=== PATIENT | male | born 1955 | race Caucasian/White ===

== ENCOUNTER 2023-12-03 21:05 | Inpatient (IN) | payer OTHER, SELFPAY ==
[2023-12-03 19:01] VITALS: BP 132/74
[2023-12-03 19:06] VITALS: BMI 29.1
[2023-12-03 19:10] VITALS: BP 105/91
[2023-12-03 19:16] LABS: % Basophils 0.8 % (0-2); % Eosinophils 1.6 % (0-6); % Immature Granulocytes 0.3 % (0-0.5); % Lymphocytes 27.9 % (20.5-51.1); % Monocytes 11.1 % (1.7-9.3); % Neutrophils 58.3 % (42.2-75.2); Absolute Basophils 0.1 10^3/uL (0-0.2); Absolute Eosinophils 0.2 10^3/uL (0-0.7); Absolute Lymphocytes 2.7 10^3/uL (1.2-3.4); Absolute Monocytes 1.1 10^3/uL (0.1-0.6); Absolute Neutrophils 5.7 10^3/uL (1.4-6.5); Hematocrit 41.3 % (39.0-52.0); Hemoglobin 14.5 g/dL (13.0-18.0); Mean Corp Hgb Conc. 35.1 g/dL (33.0-37.0); Mean Corpuscular Hgb 29.9 pg (27.0-31.0); Mean Corpuscular Volume 85.2 fL (80.0-94.0); Mean Platelet Volume 9.9 fL (7.4-10.4); Nucleated Red Blood Cells % 0 % (-); Platelet Count 245 10^3/uL (130-400); Red Blood Cell Count 4.85 10^6/uL (4.70-6.10); Red Cell Dist. Width 12.6 % (11.5-14.5); White Blood Cell Count 9.8 10^3/uL (4.8-10.8)
--- NOTE | 2023-12-03 19:20 | ED.GENMED ---
History of Present Illness
General
Chief Complaint: Dizziness
Source: patient
Time Seen by Provider: 12/03/23 19:01
History of Present Illness
History of Present Illness:
68-year-old male emergency room complaining of near syncope, dizziness. Patient states that he was performing his daily walk which involves going 1/[address] and back to the house. The walk back to the house is uphill. Patient
began feeling lightheaded and short of breath. Patient had to stop the walk. He started up again and again the symptoms returned. Patient then again began walking and he developed similar symptoms making him have to stop walking and go down to
his knee. 911 was called. Currently the patient has no chest pain, shortness of breath or any symptoms. He feels pretty good at this point. Patient relates that 2 days ago while performing some extensive work around the house including shoveling
heavy material was moving a heavy wheelbarrow he began having pain in his upper back which was significant. It made him feel nauseous. He may have felt some shortness of breath. Even after completing the work he felt very poorly throughout the
evening. Yesterday patient woke up feeling somewhat better. He did perform his walk yesterday, was able to finish but felt more tired during the walk event normal. Patient denies any previous cardiac history. He does have a history of
hypertension.
Past History
Past History
ED Past Medical History: HTN
Social History
Tobacco: Non-smoker
Alcohol: Occasional
Drug: None
Phy Exam
Physical Exam
Physical Exam:
General: Awake, Alert, Oriented X3. No acute distress.
Vitals: unremarkable
Head: Atraumatic
Eyes: Pupils equal, EOMI
Throat: Airway intact, no exudates
Neck: Trachea midline
Lungs: Clear and equal b/l
Heart: Regular rate, no murmurs
Abd: Soft, Nontender, No pulsatile mass
Neuro: Nonfocal
Skin: Warm, dry, no rash
Extremities: pulses equal b/l, no edema
Course
Orders/Labs/Results
Orders:
Orders
12/03/23 19:00
Electrocardiogram (*1) Urgent
Reason for Study: Chest Pain
Cardiac Monitoring- Treatment ONCE
EKG- Treatment ONCE
IV Insert/Care/Rem.- Treatment PRN
O2 Therapy [RESP] Urgent
Titrate/Wean O2 to maintain O2 sat greater than (%): 90
Special Instructions: Maintain sats >/=90%
Pulse Ox/spot Check [RESP] Urgent
Quantity: 1
Special Instructions: ON ROOM AIR
12/03/23 19:05
Complete Blood Count/With Diff Urgent
Comprehensive Metabolic Panel Urgent
Troponin I Urgent
12/03/23 19:27
Aspirin Chewable [Low Strength Aspirin] 324 mg PO NOW STA
12/03/23 19:42
Urinalysis Urgent
Date Specimen was Collected: 12/03/23
Time Specimen was Collected: 19:43
0.9% Sodium Chloride 500 ml [Nss] 500 ml IV BOLUS
12/03/23 19:43
CR Chest - 2 Views Urgent
Comment:
Reason For Exam: sob
12/03/23 20:07
Heparin 4,000 units IV NOW STA
Nursing to Place Non Medication Order As Directed
Physician Order: PTT 6 hours after initial start of Heparin infusion
Above order entered?: Yes
12/03/23 20:15
Heparin 11734 Units/250 ml 25,000 units in 250 ml IV PER PROTOCOL
Weight to be used for heparin protocol in kilograms (kg):: 99.9
Protocol:: Cardiac Tx/Acute Coronary
PTT Goal Range to be used:: PTT 73 to 111 seconds
Order type:: Initial
INITIAL Infusion Dose (UNITS/KG/hr) & then follow protocol:: 15 units/kg/hr
Infusion Dose in UNITS/hr & then follow protocol (UNITS/hr):: 1,500
INFUSION RATE in mL/hr & then follow protocol (mL/hr):: 15
PTT less than or equal to 64 seconds:: Increase rate by 200 units/hr (+ 2 mL/hr)
PTT 64.1 to 72.9 seconds:: Increase rate by 100 units/hr (+ 1 mL/hr)
PTT 73 to 111 seconds:: Target Range. No change in rate.
PTT 111.1 to 130.9 seconds:: Decrease rate by 100 units/hr (- 1 mL/hr)
PTT 131 to 199.9 seconds:: HOLD for 1 hr. Then decrease rate by 200 units/hr (- 2 mL/hr)
PTT greater than or equal to 200 seconds:: HOLD for 2 hrs & Notify Provider. Then decrease by 200 units/hr (-
2 mL/hr)
Lab follow-up:: Each change, PTT q6h until 2 consecutive are therapeutic. Then PTT
daily.
12/03/23 20:20
PTT Urgent
Comment: Obtain baseline before beginning heparin infusion if not already collected
12/03/23 20:51
Admit/Transfer Patient As Directed
Co-Sign Provider:
Level of Care: Inpatient admission
Assign to:: IVU
Physician / Group: aleksey
Diagnosis: NSTEMI
Reason for Hospitalization: NSTEMI
Expected length of stay greater than two midnights?: Yes
ELOS- Estimated Length of Stay in days: 2
I certify the patient meets the requirements for IP care: Yes
PRN Pain Medication Management As Directed
May give lesser potent ordered pain med per pt: Yes
preference::
Protocol:: Medication orders for pain may be administered in a
manner that supports deferring to patient preference
when the pt is:
- Requesting an ordered lesser potent pain medication.
Least to most potent pain medications are defined
as: acetaminophen < NSAID < tramadol < opioids
(morphine, oxycodone, hydromorphone).
- Requesting a lesser dose of the same medication IF
ORDERED.
- Requesting a less intrusive route of administration
if both routes are prescribed by the provider (PO <
IV).
12/03/23 20:52
Code Status As Directed
Resuscitation Status: Full Code
12/05/23 03:30
PTT Urgent
Abnormal Lab Results
12/03/23
19:05
Absolute Monos (auto) 1.1 H 10^3/uL
(0.1-0.6)
Monocytes % 11.1 H %
(1.7-9.3)
BUN 39 H mg/dl
(9-20)
Glucose 101 H mg/dl
(70-99)
AST 153 H U/L
(17-59)
ALT 52 H U/L
(0-50)
Troponin I 11.300 H* ng/ml
12/03/23 19:05
12/03/23 19:05
Vital Signs
Initial and Last Documented VS:
Initial Vital Signs
Temp Pulse Resp BP Pulse Ox
98.7 F 119 17 132/74 99
12/03/23 19:01 12/03/23 19:01 12/03/23 19:01 12/03/23 19:01 12/03/23 19:01
Last Documented Vital Signs
Temp Pulse Resp BP Pulse Ox
98.7 F 59 20 115/68 96
12/03/23 19:01 12/03/23 21:30 12/03/23 21:30 12/03/23 20:00 12/03/23 21:30
MDM/Problems Addressed
Differential Diagnosis Includes:
Recent IA, anemia, heat exhaustion, acute coronary syndrome
MDM/Problems Addressed:
Patient presents after having fatigue, shortness of breath, dizziness while on a short walk. Patient has a significantly abnormal EKG with deep T wave inversions in the inferior leads as well as T wave inversion in the lateral leads. There are Q
waves in 2, 3, aVF. Given the EKG changes and description of how he fell 2 days ago while doing heavy work around his house I am concerned that he had a cardiac event at that time. Troponin did return elevated at 11. The overall picture suggest a
late presentation of an acute IA. Patient is hemodynamically stable here in the emergency room. He was treated with aspirin and heparin. I discussed his presentation with Dr. Bhavna Casarez who is on-call for cardiology. We will keep the patient
n.p.o. after midnight in anticipation of a cath tomorrow.
Chronic conditions affecting care: HTN
*Radiology
Radiology exam reviewed: preliminary read by ED provider (No acute findings on my review of the chest x-ray)
*Pulse Oximetry
Patient hypoxic: no
*EKG
Interpreted by ED Provider?: Yes
Heart Rate: 62
Rate: normal
Rhythm: sinus
[place]: normal axis
Interval: normal interval
Ischemia: other (Deep T wave inversions in the inferior lateral leads. There is no significant ST elevation. There are Q waves in leads II, III and aVF.)
*Hot Dog Vender Interpretation
Rate: normal
Interpretation: normal
Rhythm: sinus
*Critical Care Note
Total Time (30-74mins, 75-104mins- exclusive of procedures): 40 min
comment:
Critical care statement: A total of 40 minutes of critical care time was provided for this patient. This includes management of unstable vital signs, evaluation of the patient at bedside, reviewing the patient's pertinent medical records, discussion
with consultants, review of old EKGs and review of pertinent medical records. This time with separate from time utilized to perform the aforementioned documented procedures
ED Attending Note
-
Portions of this chart may have been created with voice recognition software.� Occasional wrong word or��sound alike� substitutions may have occurred due to the inherent limitations of voice recognition software.
Discharge Plan
Departure
Patient Disposition: Admit
Date of Disposition: 12/03/23
Time of Disposition: 20:27
Admit to: IVU
Presentation/result/management discussed w/ accepting MD/DO: Hospitalist
Condition: Serious
Discharge Problem:
Acute IA, inferior wall
Interventions
Interventions:
*Risk Screen - Suicide Last Done: 12/03/23 19:01
*General Assessment Last Done: 12/03/23 19:01
*Neglect/Abuse Screening Last Done: 12/03/23 19:01
ED- Fall Risk Assessment Last Done: 12/03/23 19:07
*Nursing Disposition Last Done: 12/03/23 21:54
ED- Neurological Assessment Last Done: 12/03/23 19:07
ED- Cardiac Assessment Last Done: 12/03/23 19:07
ED Swallowing Screen Last Done: 12/03/23 19:07
Discharge Date and Time
Discharge Date/Time: 12/03/23 21:55
[2023-12-03] MEDS: LOW STRENGTH ASPIRIN 324 MG PO (19:31)
[2023-12-03 19:40] LABS: ALT (SGPT) 52 U/L (0-50); AST (SGOT) 153 U/L (17-59); Albumin 4.2 g/dl (3.5-5.0); Alkaline Phosphatase 81 U/L (38-126); Blood Urea Nitrogen 39 mg/dl (9-20); Calcium 9.2 mg/dl (8.4-10.2); Carbon Dioxide 28 mmol/L (22-30); Chloride 102 mmol/L (98-107); Estimated Creatinine Clearance 101 ml/min; Glucose 101 mg/dl (70-99); Potassium 3.9 mmol/L (3.5-5.1); Sodium 140 mmol/L (135-145); Total Bilirubin 0.7 mg/dl (0.2-1.3); Total Protein 6.6 g/dl (6.3-8.2); eGFR > 60.00
[2023-12-03] MEDS: NSS 500 IV (19:44)
[2023-12-03 20:00] VITALS: BP 115/68
[2023-12-03] MEDS: HEPARIN 4000 UNITS IV (20:26)
[2023-12-03] MEDS: HEPARIN 25000 UNITS/250 ML IV (20:28)
[2023-12-03 20:37] LABS: APTT 26.9 Sec (23.4-35.0)
--- NOTE | 2023-12-03 20:56 | HPS.HSE ---
Family Physician
-
Family Physician: Kristie Verde MD
Chief Complaint
-
dizziness
History of Present Illness
68-year-old male past medical history of hypertension presenting for dizziness and near syncope. He was on his daily walk and began feeling lightheaded and short of breath with blurry vision while walking up the hill. He had to stop to walk. He
started again and the symptoms returned so he had to go down to his knees. He called 911.
Currently he denies any chest pain or shortness of breath or any symptoms. He feels pretty good right now.
2 days ago while performing extensive work around the house including shoveling heavy material and moving a wheelbarrow he was having pain in his upper back which was significant. Denies any radiation to the arms or jaw or neck. He has some
soreness in the back. He had nausea and shortness of breath.
His mother had high blood pressure. His grandfather had stroke.
He occasionally smokes cigars. He denies alcohol.
Medical History
Past Medical History
Past Medical History: Reports Other ( hypertension)
Past Surgical History: Reports None
Social History
Tobacco: Non-smoker
Alcohol: None
Drug: None
Family History
Family History: Not pertinent
Allergies / Home Medications
Allergies reflects when Allergies were last updated in [facility].
Home Medications with original date entered in [facility]
Allergy/Medication List:
Allergies
Allergy/AdvReac Type Severity Reaction Status Date / Time
No Known Allergies Allergy Unverified 12/03/23 19:29
Home Medications
amlodipine 10 mg tablet 10 mg PO QPM 12/03/23
atorvastatin 10 mg tablet 10 mg PO QPM 12/03/23
azelastine 205.5 mcg (0.15 %) nasal spray (Astepro Allergy) 1 spray intranasal DAILY 12/03/23
cetirizine 10 mg tablet 10 mg PO DAILYPRN PRN allergies 12/03/23
cholecalciferol (vitamin D3) 50 mcg (2,000 unit) tablet 50 mcg PO DAILY 12/03/23
metoprolol succinate 25 mg tablet,extended release 24 hr 25 mg PO QPM 12/03/23
metoprolol succinate 50 mg tablet,extended release 24 hr 50 mg PO DAILY 12/03/23
oqlwrcvh-guj-irkcr 150 mcg-vit K1 30 mcg-lycop 300 mcg-lutein tablet (Centrum Minis Men 50 Plus) 1 tab PO DAILY 12/03/23
Review of Systems
-
History Source: Patient
A 12 point ROS was completed and negative except as noted: Yes
Constitutional: Reports No Symptoms
EENT: Reports No Symptoms
Respiratory: Reports See HPI
Cardiac: Reports See HPI
Abdomen/GI: Reports No Symptoms
: Reports No Symptoms
Musculoskeletal: Reports No Symptoms
Skin: Reports No Symptoms
Neurological: Reports No Symptoms
Endocrine: Reports No Symptoms
Hematologic/Lymphatic: Reports No Symptoms
Psych: Reports No Symptoms
Physical Exam
Vital Signs
Vital Signs
Temp Pulse Resp BP Pulse Ox
98.7 F 65 7 132/74 99
12/03/23 19:01 12/03/23 19:07 12/03/23 19:07 12/03/23 19:01 12/03/23 19:01
Physical Exam
General: Well Developed, Well Nourished and No Apparent Distress
HEENT: NormoCephalic, Moist mucous membranes and Atraumatic
Respiratory: Clear
Cardiac: S1/S2 and Regular Rhythm; No Murmur or Rub
GI: Soft, Non Tender, Non Distended and Normal Bowel Sounds; No Organomegaly
Rectal: Deferred by Provider
Musculoskeletal: No Clubbing, No Cyanosis and No Edema
Skin: No Rash
Neuro: Nonfocal/grossly intact
Laboratory Results
-
12/03/23 19:05
09/11/24 19:05
Laboratory Results
APTT 26.9 Sec (23.4-35.0) 12/03/23 20:20
Total Bilirubin 0.7 mg/dl (0.2-1.3) 12/03/23 19:05
AST 153 U/L (17-59) H 12/03/23 19:05
ALT 52 U/L (0-50) H 12/03/23 19:05
Alkaline Phosphatase 81 U/L (38-126) 12/03/23 19:05
Troponin I 11.300 ng/ml H* 12/03/23 19:05
Data Reviewed
-
Lab Data: Labs Reviewed by me
Old Records: Reviewed
Impression/Plan
-
IMPRESSION:
PLAN:
# NSTEMI
-EKG shows normal sinus rhythm, left axis deviation, incomplete right bundle branch block, T wave inversions inferior, lateral leads
-Troponin 11, trend to peak
-Aspirin
-Heparin drip
-N.p.o. past midnight for likely catheterization
-Continue statin
-Check chest x-ray
-Check echo
-Cardiology consulted
Essential hypertension
-Continue amlodipine
-Continue metoprolol
Full code
DVT prophylaxis�heparin drip
Regular diet
[2023-12-03 22:08] VITALS: BP 132/79
[2023-12-03 23:08] VITALS: BMI 28.5
[2023-12-03 23:46] LABS: Urine Albumin Trace (Neg - Trace); Urine Bilirubin Negative (Negative); Urine Character Clear (Clear); Urine Color Yellow; Urine Glucose Negative (Negative); Urine Ketone 3+ (Negative); Urine Leukocyte Negative (Negative); Urine Nitrite Negative (Negative); Urine Occult Blood Negative (Negative); Urine Urobilinogen Negative (Neg - 1+)
[2023-12-04] VITALS (11 sets, daily range): BP systolic 106–132; BP diastolic 66–81
--- NOTE | 2023-12-04 00:21 | PTCARENOTE ---
Pt rec'd from ED at [facility]. No complaints. adm hx taken and recorded. Pt given box lunch at HS and is now npo after mn for cath.
Heparin gtt infusing at 15 cc/hr Sinus on telemetry
[2023-12-04 04:13] LABS: % Basophils 0.8 % (0-2); % Eosinophils 1.3 % (0-6); % Immature Granulocytes 0.3 % (0-0.5); % Lymphocytes 28.6 % (20.5-51.1); % Monocytes 10.9 % (1.7-9.3); % Neutrophils 58.1 % (42.2-75.2); Absolute Basophils 0.1 10^3/uL (0-0.2); Absolute Eosinophils 0.1 10^3/uL (0-0.7); Absolute Lymphocytes 2.7 10^3/uL (1.2-3.4); Absolute Neutrophils 5.4 10^3/uL (1.4-6.5); Hematocrit 39.5 % (39.0-52.0); Hemoglobin 14.1 g/dL (13.0-18.0); Mean Corp Hgb Conc. 35.7 g/dL (33.0-37.0); Mean Corpuscular Hgb 31.1 pg (27.0-31.0); Mean Platelet Volume 10.8 fL (7.4-10.4); Nucleated Red Blood Cells % 0 % (-); Platelet Count 233 10^3/uL (130-400); Red Blood Cell Count 4.54 10^6/uL (4.70-6.10); Red Cell Dist. Width 12.6 % (11.5-14.5); White Blood Cell Count 9.3 10^3/uL (4.8-10.8)
[2023-12-04 04:26] LABS: APTT 92.2 Sec (23.4-35.0)
[2023-12-04 04:43] LABS: ALT (SGPT) 47 U/L (0-50); AST (SGOT) 108 U/L (17-59); Albumin 3.9 g/dl (3.5-5.0); Alkaline Phosphatase 83 U/L (38-126); Blood Urea Nitrogen 28 mg/dl (9-20); Calcium 9.1 mg/dl (8.4-10.2); Carbon Dioxide 24 mmol/L (22-30); Chloride 106 mmol/L (98-107); Estimated Creatinine Clearance > 125 ml/min; Glucose 91 mg/dl (70-99); HDL Cholesterol 42 mg/dl; LDL Cholesterol, Calculated 64 mg/dl; Potassium 3.8 mmol/L (3.5-5.1); Sodium 140 mmol/L (135-145); Total Bilirubin 1.1 mg/dl (0.2-1.3); Total Cholesterol 128 mg/dl (50-199); Total Protein 6.2 g/dl (6.3-8.2); Triglyceride 110 mg/dl (10-149); Very Low Density Lipoprotein 22 mg/dl (0-30); eGFR > 60.00
--- NOTE | 2023-12-04 06:58 | PTCARENOTE ---
Pt converted to afib, ecg confirmed. Pt with no prior history. Pt's only complaint is that of feeling warm. denies palpitations or cp.
--- NOTE | 2023-12-04 08:15 | CON.CAR ---
Addendum entered and electronically signed by Amberly Mathur MD 12/04/23 10:01:
I saw and examined the patient.
The PEST LOCATOR's note was reviewed and I agree with the note.
Comment: 68-year-old gentleman with past medical history of hypertension and hyperlipidemia who experienced an episode of back and chest pain after shoveling rocks on Friday or Friday. This resolved after about an hour or so he thought he was out
of the ramirez. Yesterday when walking to the mailbox up a hill for quarter a mile he had sudden onset of severe fatigue lightheadedness and feeling like he may pass out. On presentation EKG was concerning for inferior infarct pattern with Q waves
in 2 and aVF with deep symmetrical ST inversions inferolaterally. Troponin was 11.3 on arrival. He was admitted for NSTEMI, overnight he developed atrial fibrillation with rate control. He has no symptoms currently of palpitations. He has no
recurrent neck, back or chest pain does have a bit of dyspepsia currently. He is a non-smoker, drinks wine throughout the week. 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 On exam he has an irregularly irregular rate and rhythm
with a normal S1-S2 no murmurs or gallops were appreciated lungs were clear to auscultation bilaterally his good ulnar and radial pulses bilaterally. Most pressing problem is his NSTEMI, will arrange for cardiac catheterization today. Continue
aspirin and heparin, high-dose statin. BB to continue additional OMT as needed. I did review the case with interventional cardiology Dr. Gates. Trope is already peaked and we may have missed the true peak. Postcatheterization would continue
heparin drip and transition to Eliquis given the new atrial fibrillation. CHADS2 Vascor is a 2 and likely a 3 given his NSTEMI. If remains in atrial fibrillation tomorrow can arrange for cardioversion will keep n.p.o. after midnight. I counseled
him as to the appropriate use of Eliquis and needing to avoid NSAIDs and alcohol. Remaining chronic problems of hypertension and hyperlipidemia will be managed with doses of drugs adjusted as needed.
Original Note:
Consultation
Consultation Request
Date/Time Consultation Requested: 12/03/23 2240
Date/Time Consultation Performed: 12/04/23 0800
Requesting Provider: Dr. Thompson
Performing Provider: Kathya RAMOS for Dr. Mathur
Reason for Consultation: myocardial infarction
Medical History
-
Chief Complaint: fatigue, dizziness, back pain, chest discomfort
History of Present Illness:
68 y/o male with HTN and dyslipidemia who is here for evaluation after he walked 1/4 mile to his mailbox yesterday and felt severe fatigue and light-headedness with blurry vision, like he might pass out (which he did not). He got to his knees and
911 was alerted. He does report that on Friday or Friday (he can't remember which), he was shoveling rocks and felt tension in his upper back for hours. He also had a mild chest discomfort afterward for about 1 hour. He has also had some nausea and
mild SOB. He is chest pain free at the time of my assessment and is in no distress.
Past Medical History
Past Medical History: HTN and Hypercholesterolemia
Social History
Tobacco: Other (used to have an occasional cigar. )
Alcohol: Other (sometimes has 1-2 glasses of wine while cooking)
Family History
Family History: Reviewed & Not Pertinent
Allergies / Home Medications
Allergy/AdvReac Type Severity Reaction Status Date / Time
amlodipine Allergy Mild Swelling Verified 12/04/23 00:38
�Medication �Instructions �Recorded �Confirmed �Type
amlodipine 10 mg tablet 10 mg PO QPM Blood Pressure 12/03/23 12/03/23 History
atorvastatin 10 mg tablet 10 mg PO QPM High Cholesterol 12/03/23 12/03/23 History
azelastine 205.5 mcg (0.15 %) 1 spray intranasal DAILY Allergies 12/03/23 12/03/23 History
nasal spray (Astepro Allergy)
cetirizine 10 mg tablet 10 mg PO DAILYPRN PRN allergies 12/03/23 12/03/23 History
cholecalciferol (vitamin D3) 50 50 mcg PO DAILY Supplement 12/03/23 12/03/23 History
mcg (2,000 unit) tablet
metoprolol succinate 25 mg 25 mg PO QPM Heart 12/03/23 12/03/23 History
tablet,extended release 24 hr Disease/Condition
metoprolol succinate 50 mg 50 mg PO DAILY Heart 12/03/23 12/03/23 History
tablet,extended release 24 hr Disease/Condition
glfiqwxw-ask-cdozr 150 mcg-vit K1 1 tab PO DAILY Supplement 12/03/23 12/03/23 History
30 mcg-lycop 300 mcg-lutein tablet
(Centrum Minis Men 50 Plus)
Review of Systems
-
History Source: Patient
All other systems: Negative unless noted
Constitutional: Fatigue and Other (light-headedness)
Respiratory: Trouble Breathing
Cardiac: Chest Pain
Abdomen/GI: Nausea
Musculoskeletal: Other (back pain)
Physical Exam
Vital Signs
Temp Pulse Resp BP Pulse Ox
99.1 F 84 18 116/71 97
12/04/23 08:10 12/04/23 07:00 12/04/23 08:10 12/04/23 06:52 12/03/23 21:45
Lab Results
12/04/23 03:30
12/04/23 03:30
Troponin I 9.480 ng/ml H* 12/04/23 03:30
Physical Exam
General: Well Developed, Well Nourished and No Apparent Distress
HEENT: Normocephalic and Anicteric
Respiratory: Clear and Non Labored Respirations
Cardiac: Regular Rhythm
Musculoskeletal: No Edema
Skin: Warm and Dry
Neuro: AO x 3
Psych: Calm
Impression / Plan
-
NSTEMI:
-this diagnosis is threat to life
-trop 11.3, down to 9.5
-likely missed event based on EKG, trops, and history
-CP free at the time of my assessment
-ASA full dose given, continue ASA 81 mg daily
-continue heparin drip, which requires intensive monitoring
-echo today
-cardiac cath today
-hgbA1C is pending
Afib, paroxysmal:
-noted since this AM around 6 AM, minimally symptomatic with palps
-rate-controlled- continue metoprolol
-[id number] score is at least 3 for HTN, age, and AR- currently on heparin drip, but will need OAC
HTN:
-stable
-on amlodipine and metoprolol as OP
Dyslipidemia:
-LDL is 64
-on atorvastatin 10 mg daily as OP
-now with NSTEMI will increase to high intensity
Data Reviewed
-
EKG: Tracing Personally Visualized and interpreted (NSR 62 BPM, lateral and inferior t wave inversions, q waves present)
Radiology: Report Reviewed by me (No acute cardiopulmonary process.)
Labs: Labs Reviewed by me
[2023-12-04 09:19] LABS: Glycohemoglobin (HgbA1c) 5.4 % (4.0-5.6)
[2023-12-04] MEDS: THERAGRAN 1 TABLET PO (09:51)
[2023-12-04] MEDS: VITAMIN D3 (cholecalciferol) 50 MCG PO (09:51)
[2023-12-04] MEDS: LOW STRENGTH ASPIRIN 81 MG PO (09:51)
[2023-12-04] MEDS: TOPROL XL 50 MG PO (09:52)
--- NOTE | 2023-12-04 10:10 | CM ---
Pricing on Eliquis 5mg BID is $47 for a 30 day supply. I will place a free 30 day coupon in the patient's red discharge folder.
--- NOTE | 2023-12-04 10:34 | CM ---
Chart reviewed. Patient is independent of ADLS, lives with his in a multilevel house, 2 [address]AI[address] through the front and 4 [address]AI[address] through the side, 0 DME. Plan is to return home. CM to follow
[2023-12-04 11:59] LABS: ACT-LR - POC 210 Seconds (116-155)
[2023-12-04] MEDS: PROTONIX 40 MG PO (12:53)
--- NOTE | 2023-12-04 13:16 | ITS.CL.CATH ---
[employer] - Catheterization
Cardiac Catheterization
Procedure Report:
CARDIAC CATHETERIZATION REPORT
Date of Procedure: 12/04/23
Referring: Dr. Amberly Mathur
INDICATION: NSTEMI
PROCEDURE:
1. Left heart catheterization
2. Coronary angiography
3. iFR of LAD
ACCESS:
6 [place] right radial artery
CATHETERS:
1. 6 [place] JR4
2. 6 [place] JL3.5
HEMODYNAMIC DATA (mmHg)
AO 120/79 (mean 90)
LV 111/13 (EDP 18)
CORONARY ANGIOGRAPHY
Dominance: right
LM: normal
LAD: large vessel giving rise to a moderate caliber D1 and large D2. There is a 70% stenosis just after the takeoff of D2, and a second area of 50% disease distally. This was further interrogated with iFR.
LCx: large vessel giving rise to a single large marginal branch
RCA: dominant vessel that gives rise to a large RPDA and several RPL branches. The vessel is totally occluded proximally with thrombus and the mid-distal vessel fills via robust L-R collaterals. The occluded segment extends from the proximal to mid
RCA with a moderate degree of calcification within the occluded segment. There is a severe ~90% stenosis at the distal RCA just before the PDA takeoff.
iFR of LAD
The decision was made to perform physiologic testing. The diagnostic catheter was removed over a wire and exchanged for a XB3.5 guiding catheter. The guiding catheter was advanced into the ascending aorta and seated in the LMCA. Additional heparin
was given to obtain an ACT greater than 250 seconds. An iFR wire was zeroed outside of the body, then inserted into the guiding sheath. The wire was advanced and the transducer was normalized just outside of the guiding catheter tip. The wire was
advanced into the distal. Three iFR measurements were taken and was positive (0.84, 0.83, 0.85). iFR pullback was then performed; delta iFR was most significant for the more proximal lesion with some contribution also from the distal lesion. The iFR
correctly normalized to 1.0 in the LM.
Closure Device: TR band
Radiation (mGy): 459.96
DAP (cm2.Gy): 29.9490
Fluoroscopy time (minutes): 7.4
CONCLUSIONS
1. Two vessel obstructive coronary artery disease in a right dominant system with culprit 100% occluded RCA with robust L-R collaterals and non-culprit iFR positive mid-LAD.
2. Mildly elevated LV filling pressure and no aortic stenosis.
RECOMMENDATIONS:
1. Expectant management after cardiac catheterization via right radial approach.
2. Consult CT surgery for CABG evaluation.
3. Continue ASA, statin, metoprolol; on RASS agents or P2Y12 pending surgical evaluation.
Copy to: Dr. Kristie Verde MD (PCP)
Signed: Tushar Burrell MD, PhD
--- NOTE | 2023-12-04 13:36 | CONSULT.CT ---
Consultation
-
Date/Time Consultation Requested: 12/03
Date/Time Consultation Performed: 12/03
Requesting Provider: Cricket Burrell
Performing Provider: Irene RAMOS for Dr. Kev Sr
Reason for Consultation: CABG evaluation
Patient History
Physicians
Family Physician: Kristie Verde
Outpatient Perinatal Tech: Cricket Burrell
Inpatient Perinatal Tech: Cricket Burrell
History of Present Illness
68-year-old right hand dominant male Presented to [facility] ED on 12/03/2023 for evaluation of acute onset fatigue and lightheadedness/near syncope after walking to his mailbox uphill. Denies chest pressure. Patient had an episode
of back and chest pain after shoveling rocks on Friday or Friday, which resolved after an hour. Patient describes this episode is different from his history of prior back pain experience with musculoskeletal injury. Troponin was 11.3 on arrival
and patient was admitted for NSTEMI. Overnight, he developed rate controlled new onset atrial fibrillation. A transthoracic echocardiogram performed today reported an EF of 55 to 60% and mild mitral regurgitation. Left heart cath was conducted
today and reported two-vessel coronary disease. Patient currently pain-free resting in bed.
LHC (R radial) 12/03:
LM: normal
LAD: 70% stenosis just after the takeoff of D2, and a second area of 50% disease distally. +iFR ((0.84, 0.83, 0.85)
LCx: normal
RCA: Totally occluded proximally with thrombus and the mid-distal vessel fills via robust L-R collaterals. The occluded segment extends from the proximal to mid RCA with a moderate degree of calcification within the occluded segment. There is a
severe ~90% stenosis at the distal RCA just before the PDA takeoff.
Past Medical History
Past Medical History: HTN and Hypercholesterolemia
Past Surgical History
Past Surgical History: None
Family History
Mother: N/A
Father: N/A
Social History
Alcohol: Occasional
Drug: None
Tobacco: Smoker (rare cigar)
Personal:
Living: With Spouse
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
Allergies
Allergies
Allergy/AdvReac Type Severity Reaction Status Date / Time
benazepril Allergy Severe angioedema Uncoded 12/04/23 15:03
Home Medications
�Medication �Instructions �Recorded �Confirmed �Type
amlodipine 10 mg tablet 10 mg PO QPM Blood Pressure 12/03/23 12/03/23 History
atorvastatin 10 mg tablet 10 mg PO QPM High Cholesterol 12/03/23 12/03/23 History
azelastine 205.5 mcg (0.15 %) 1 spray intranasal DAILY Allergies 12/03/23 12/03/23 History
nasal spray (Astepro Allergy)
cetirizine 10 mg tablet 10 mg PO DAILYPRN PRN allergies 12/03/23 12/03/23 History
cholecalciferol (vitamin D3) 50 50 mcg PO DAILY Supplement 12/03/23 12/03/23 History
mcg (2,000 unit) tablet
metoprolol succinate 25 mg 25 mg PO QPM Heart 12/03/23 12/03/23 History
tablet,extended release 24 hr Disease/Condition
metoprolol succinate 50 mg 50 mg PO DAILY Heart 12/03/23 12/03/23 History
tablet,extended release 24 hr Disease/Condition
[id number] 150 mcg-vit K1 1 tab PO DAILY Supplement 12/03/23 12/03/23 History
30 mcg-lycop 300 mcg-lutein tablet
(Centrum Minis Men 50 Plus)
Review of Systems
-
History Source: Patient
General: Reports No Symptoms
HEENT: Reports Other (mkild seasonal nasal congestion)
Respiratory: Reports No Symptoms
Cardiac: Reports No Symptoms
Abdomen/GI: Reports No Symptoms
: Reports No Symptoms
Musculoskeletal: Reports No Symptoms
Skin: Reports No Symptoms
Neurological: Reports No Symptoms
Vascular: Reports No Symptoms
Physical Exam
Vital Signs
Temp 98.5 F 12/04/23 12:45
Temp route: Oral 12/04/23 12:45
Pulse 86 12/04/23 12:37
Rhythm: Normal sinus rhythm 12/03/23 23:00
Resp Rate 20 12/04/23 12:45
Blood pressure 110/66 12/04/23 12:37
Blood pressure extremity used: Left upper arm 12/04/23 12:45
Position: Lying 12/04/23 12:45
MAP (cuff-Ravi Monitor) 81 12/04/23 12:37
SaO2 94 12/04/23 12:45
Oxygen Mode of Delivery Room air 12/04/23 12:45
Can the patient verbally communicate their pain? Yes 12/03/23 23:08
Actual Weight 97.8 kg 12/03/23 23:08
Body Mass Index (BMI) 28.5 12/03/23 23:08
Labs
12/04/23 03:30
12/04/23 03:30
APTT 92.2 Sec (23.4-35.0) H 12/04/23 03:30
Hemoglobin A1c Cancelled 12/03/23 22:40
Troponin I 7.040 ng/ml H* D 12/04/23 09:44
Urinalysis
Urine Color Yellow 12/03/23 23:32
Urine Clarity Clear (Clear) 12/03/23 23:32
Urine pH 5.0 (5.0-9.0) 12/03/23 23:32
Ur Specific [place] 1.020 (<1.030) 12/03/23 23:32
Urine Ketones 3+ (Negative) A 12/03/23 23:32
Urine Occult Blood Negative (Negative) 12/03/23 23:32
Urine Bilirubin Negative (Negative) 12/03/23 23:32
Ur Leukocyte Esterase Negative (Negative) 12/03/23 23:32
Urine Glucose Negative (Negative) 12/03/23 23:32
Urine Albumin Trace (Neg - Trace) 12/03/23 23:32
Exam
General: Well Developed, Well Nourished and No Apparent Distress
HEENT: Normocephalic, Anicteric, Moist Mucous Membranes and PERRLA
Neck: Trachea Midline
Respiratory: Clear
Cardiac: Irregular Rhythm
GI: Soft, Non Tender, Non Distended and Normal Bowel Sounds
Rectal: Deferred by Provider
Skin: Warm and Dry
Neuro: AO x 3, No Motor Deficits and Nonfocal/Grossly Intact
Extremities: Pulses (+2/4 DP pulses B/L)
Lymph: No Lymphadenopathy
Psych: Calm
Assessment / Plan
-
78-year-old male admitted with NSTEMI and found to have two-vessel coronary disease with preserved LV function
-Surgeon to review imaging and discuss risk-benefit of CABG procedure with family and patient
-Preop diagnostics ordered
Data Reviewed
-
EKG: Report Reviewed by me and Discussed with Physician
Bluing Oven Tender: Report Reviewed by me and Discussed with Physician
Echo: Report Reviewed by me and Discussed with Physician
Radiology: Report Reviewed by me and Discussed with Physician
Labs: Labs Reviewed by me and Discussed with Physician
--- NOTE | 2023-12-04 14:55 | W.PN.HOSP.TC ---
Today's Communication/Plan
-
WIll need CTSgy ocnsult for CABG Eval
Assessment / Plan
Assessment / Plan
NAD, resting comfortably in bed
Scleral anicteric
Moist mucous membranes
No JVD
CTA bilateral
Normal S1-S2 no murmurs IRR
Soft nontender nondistended bowel sounds active
No peripheral pitting edema
Moves extremities spontaneously
AAOx3
MVCAD with 100% lesion of the RCA (culprit lesion) and mLAD - 70%(non-culprit lesion)
-Rec CTSgy eval for CABG
-Continue Hep Gtt
-Continue BB
-Continue HIStatin
-Continue ASA
NSTEMI
� Trend troponin to peak
� Heparin drip
� Repeat EKG
� Consult cardiology
� Likely will require LHC
� N.p.o.
� Continue high intensity statin
� 2D echocardiogram, EF 55 to 60%. Without regional wall motion abnormality
� Continue beta-pedro luis
Atrial fibrillation, paroxysmal
� Continue beta-pedro luis
� On heparin drip, when ready for discharge will DC home with Eliquis 5 mg twice a day
Hypertension
� Continue CCB
� Continue beta-pedro luis
Anticipated Discharge: 24 - 48 hours
Subjective/Interval History
-
Date of Service: December 04, 2023
Seen and examined. No new complaints. Overnight went into atrial fibrillation with feeling like he had a cold and palpalpitations. This is a new diagnosis for him. He on heparin drip tolerating well. No further chest discomfort noted.
Objective Data
-
Labs:
Laboratory Results
12/04/23
03:30
WBC 9.3
Hgb 14.1
Hct 39.5
Plt Count 233
APTT 92.2 H
Sodium 140
Potassium 3.8
Chloride 106
Carbon Dioxide 24
BUN 28 H
Creatinine 0.6 L
Glucose 91
Calcium 9.1
Total Bilirubin 1.1
AST 108 H
ALT 47
Alkaline Phosphatase 83
Vital Signs:
Vital Signs
Temp Pulse Resp BP Pulse Ox
98.5 F 73 20 116/66 94
12/04/23 12:45 12/04/23 14:00 12/04/23 12:45 12/04/23 14:00 12/04/23 12:45
I&O
12/03/23 12/04/23 12/05/23
06:59 06:59 06:59
Intake Total 120 / 120
Output Total 350 / 350
Balance -230 / -230
[2023-12-04] MEDS: LIPITOR 40 MG PO (17:08)
[2023-12-04] MEDS: NORVASC 10 MG PO (17:08)
[2023-12-04] MEDS: TOPROL XL 25 MG PO (17:09)
[2023-12-04] MEDS: FLUSH (NSS) 1 FLUSH IV (17:09)
[2023-12-04] MEDS: HEPARIN 25000 UNITS/250 ML IV (17:12)
[2023-12-04 19:37] LABS: Hepatitis C Antibody Negative (Negative)
[2023-12-04 21:53] LABS: APTT 29.7 Sec (23.4-35.0)
--- NOTE | 2023-12-04 23:57 | PTCARENOTE ---
PTT result-29.7. reviewed result with Subha CV PA. continue heparin gtt at 15 ml/hr and recheck PTT in 4 hours per PA. order placed.
patient denies any cp/sob. independent in the room. SR 60s. bp stable. reviewed plan of care with patient and verbalized understanding. R radial site-CDI. +pulses/no edema. call alfred within reach. makes needs known.
[2023-12-05] VITALS (7 sets, daily range): BP systolic 105–138; BP diastolic 65–84
[2023-12-05 02:54] LABS: Hematocrit 38.3 % (39.0-52.0); Hemoglobin 13.9 g/dL (13.0-18.0); Mean Corp Hgb Conc. 36.3 g/dL (33.0-37.0); Mean Corpuscular Hgb 30.3 pg (27.0-31.0); Mean Corpuscular Volume 83.4 fL (80.0-94.0); Mean Platelet Volume 10.4 fL (7.4-10.4); Platelet Count 235 10^3/uL (130-400); Red Blood Cell Count 4.59 10^6/uL (4.70-6.10); Red Cell Dist. Width 12.6 % (11.5-14.5); White Blood Cell Count 9.2 10^3/uL (4.8-10.8)
[2023-12-05 03:03] LABS: ALT (SGPT) 41 U/L (0-50); AST (SGOT) 63 U/L (17-59); Albumin 3.6 g/dl (3.5-5.0); Alkaline Phosphatase 82 U/L (38-126); Blood Urea Nitrogen 22 mg/dl (9-20); Calcium 9.1 mg/dl (8.4-10.2); Carbon Dioxide 23 mmol/L (22-30); Chloride 107 mmol/L (98-107); Estimated Creatinine Clearance 116 ml/min; Glucose 88 mg/dl (70-99); Potassium 3.7 mmol/L (3.5-5.1); Sodium 142 mmol/L (135-145); Total Bilirubin 0.9 mg/dl (0.2-1.3); eGFR > 60.00
[2023-12-05 03:10] LABS: APTT 65.6 Sec (23.4-35.0)
--- NOTE | 2023-12-05 08:20 | PTCARENOTE ---
Assumed care of pt from prev nsg shift; Pt AAOx3 w/no CP or SOB. Pt w/IV Heparin drip infusing through patent IV line as ordered. Pt's VS stable w/HR in the 50's-60's & BP this AM 122/73. Pt is SB/SR on telemetry monitoring. Pt's R radial site
w/dressing C/D/I w/no signs or symptoms of bleeding or hematoma. Pt asking to speak to a patient advocate this AM. Pt feels 'everything is happening too quickly & he would like to get a 2nd opinion before deciding on surgery'. Pt also expressing his
'desire to go home for the weekend to have more time to decide'. This RN advised community health planning director & MDs notified. Plan of care ongoing.
[2023-12-05 08:42] LABS: Glucose - Point of Care 96 mg/dl (70-99)
--- NOTE | 2023-12-05 09:53 | W.PN.UPDATE ---
Update Note
Progress Note Update
CARDIAC SURGERY ATTENDING:
I met Mr. Eze Delgado and his briefly at bedside yesterday. This morning I had a extended conversation with Mr. Delgado over approximately 70 minutes. We reviewed his coronary pathology, discussed the various options to address his CAD including
surgical coronary revascularization versus stenting, reviewed the operative procedure in great detail, discussed the periprocedural operative risks (including, but not limited to, , stroke, AL, PPM requirement, arrhythmia, PNA, ANTOINETTE/F, bleeding,
and infection), reviewed the expected in-hospital postprocedural course, and discussed the expected outpatient recovery. All questions were answered to the best of my abilities.
I would advocate for CABG with THO to LAD and greater saphenous vein to his RPDA and potentially RPLB (will require intraoperative assessment). Given his A-fib on presentation, I would recommend concomitant encompass maze procedure and exclusion
of his left atrial appendage.
Near the end of our conversations, Dr. Tushar Gates, my interventional cardiology colleague, was also present in the room and added his expertise to our discussions. At present, the patient remains undecided as to which course he wishes to
choose, but related that he would prefer discharge and outpatient scheduling of his procedure following further personal consideration. He also mentioned obtaining a second opinion which I encouraged. The patient's was not yet present during
the discussions this morning, I will speak with her as well when she arrives later today. From a surgical perspective, I do not believe the patient necessarily needs to remain a inpatient if he remains angina free off anticoagulation. However, I
counseled the patient that leaving the hospital could impart additional risk and then it would be important that he call or return immediately with any symptomatology.
Thank you for the opportunity to participate in the care of this patient.
Kev Sr MD
[phone]
[2023-12-05] MEDS: THERAGRAN 1 TABLET PO (10:00)
[2023-12-05] MEDS: PROTONIX 40 MG PO (10:00)
[2023-12-05] MEDS: TOPROL XL 50 MG PO (10:00)
[2023-12-05] MEDS: VITAMIN D3 (cholecalciferol) 50 MCG PO (10:00)
[2023-12-05] MEDS: LOW STRENGTH ASPIRIN 81 MG PO (10:00)
--- NOTE | 2023-12-05 10:28 | W.PN.CD ---
Today's Communication / Plan
-
ongoing discussion with patient/family regarding surgical plans
Impression / Plan
-
Mr. Delgado is a 68 year old man with medical history of HTN and HLD, admitted with several days of chest pain, found to have new Afib and NSTEMI with urgent cardiac cath 12/04/23 demonstrating 100% occluded proximal RCA with L-R collaterals and
non-culprit 80% mid LAD. He has remained chest pain free. He was referred for CABG evaluation.
# CAD
# NSTEMI
- most likely the patient had long standing severe disease allowing robust L-R collaterals to form and minimizing the size of his AZ when the RCA fully occluded
- his infarct likely occurred several days prior to presentation, troponin downtrending at time of admission
- EF preserved on TTE
- remains chest pain free
- Given lack of symptoms or signs of ongoing ischemia with a totally occluded culprit lesion, PCI of RCA is not indicated. He also has non-culprit severe LAD disease that was iFR positive. Revascularization of the LAD is indicated. While this could
be accomplished percutaneously, the it would require a long segment of stenting and custodial side branch vessels. He is a young patient and would benefit from a more durable result from a RILEY-LAD. Surgery would also allow grafting of his RCA
(currently dependent on L-R collaterals) and atrial clipping to address his Afib. I discussed the patient with Dr. Sr who has seen the patient and concurs that surgical revascularization would be optimal. The patient is considering obtaining a
second opinion, which would require discharge. Dr. Sr and I share the opinion that there is risk involved in discharging the patient of recurrent AZ, and we shared our concerns with with the patient who understands. He will discuss with his
today and make a final decision.
-cont. ASA, no P2Y12 given potential surgery
-continue heparin drip for Afib (no longer indicated from an ACS standpoint given RCA is totally occluded and he is at least 48 hours from his AZ)
Afib, paroxysmal:
- noted since morning of admission, minimally symptomatic, now in sinus rhythm
- continue metoprolol
- [id number] score is at least 3 for HTN, age, and AZ; will need anticoagulation with plan pending surgical decision
HTN:
-stable
-on amlodipine and metoprolol as OP
Dyslipidemia:
-LDL is 64
-on atorvastatin 10 mg daily as OP
-now with NSTEMI will increase to high intensity
Physical Exam
Vital Signs/Labs
Vital Signs
Temp Pulse Resp BP Pulse Ox
37.1 C 65 20 119/71 95
12/05/23 08:00 12/05/23 08:45 12/05/23 08:00 12/05/23 08:03 12/05/23 08:00
12/04/23 12/05/23 12/06/23
06:59 06:59 06:59
Actual Weight 97.8 kg
12/05/23 02:40
12/05/23 02:40
APTT 65.6 Sec (23.4-35.0) H 12/05/23 02:40
Triglycerides 110 mg/dl (10-149) 12/04/23 03:30
LDL Cholesterol, Calc 64 mg/dl 12/04/23 03:30
VLDL Cholesterol, Calc 22 mg/dl (0-30) 12/04/23 03:30
HDL Cholesterol 42 mg/dl 12/04/23 03:30
LAB Results
12/03/23 12/03/23 12/04/23
19:05 22:40 03:30
Troponin I 11.300 H* Cancelled 9.480 H*
12/04/23 12/04/23 12/04/23
09:44 13:15 19:15
Troponin I 7.040 H* D Cancelled Cancelled
Physical Exam
Constitutional: No acute distress and Comfortable
Cardiovascular: Rhythm & rate is regular, Pedal edema is absent, JVD pressure is normal, Systolic murmur absent and Diastolic murmur absent
Respiratory: Respiratory effort normal, Lungs clear to auscul. and Wheeze Absent
Neuro/Psych: Alert, Oriented and AO x 3
Other: Cath Site ([facility])
Data Reviewed
-
Date of Service: December 05, 2023
Medical Decision Making: Reviewed Test Results, Test Interpretation and Review of Case with other Provider
EKG: Tracing Personally Visualized and interpreted
Echo: Report Reviewed by me
X-Ray/CT/US/MRI/NUC/PET: Report Reviewed by me
Medical Tests (PFT, Pathology etc): Report Reviewed by me
Labs: Labs Reviewed by me and Labs Ordered by me
[2023-12-05 11:23] LABS: APTT 82.9 Sec (23.4-35.0)
[2023-12-05] MEDS: HEPARIN 25000 UNITS/250 ML IV (11:49)
--- NOTE | 2023-12-05 13:47 | W.PN.UPDATE ---
Addendum entered and electronically signed by RACHEL Webb 12/05/23 17:22:
Edit:
Procedure Type:�Isolated CABG
PERIOPERATIVE OUTCOME ESTIMATE %
Operative Mortality 0.64%
Morbidity & Mortality 3.53%
Stroke 0.537%
Renal Failure 0.386%
Reoperation 1.55%
Prolonged Ventilation 1.61%
Deep Sternal Wound Infection 0.083%
Long Hospital Stay (>14 days) 1.99%
Short Hospital Stay (<6 days)* 63.7%
Clinical Summary
Planned Surgery: Isolated CABG, Elective, First cardiovascular surgery
Demographics: 68 year old, White, male, 97.8kg, 185cm, BMI: 28.6 kg/m�
Lab Values: Creatinine: 0.7 mg/dL, Hematocrit: 38.3%, WBC Count: 9.2 10�/�L, Platelet Count: 100839 cells/�L
Substance Abuse: Never smoker, Alcohol use: <=1 drink/week
Risk Factors / Comorbidities: Hypertension
Cardiac Status: Ejection Fraction = 60%
Coronary Artery Disease: 2 vessels diseased, Non-ST Elevation [place], [place]: 1 to 7 Days
Valve Disease: Trivial/Trace AR, Mild MR, Trivial/Trace TR
Arrhythmia: Remote A-fib
Original Note:
Update Note
Progress Note Update
STS RISK SCORE
Clinical Summary
Planned Surgery: Isolated CABG, Urgent, First cardiovascular surgery
Demographics: 60 year old, male, 133.8kg, 178cm, BMI: 42.2 kg/m�
Lab Values: Creatinine: 0.7 mg/dL, Hematocrit: 44.3%, WBC Count: 8.7 10�/�L, Platelet Count: 186559 cells/�L
PreOp Medications: Insulin diabetes control
Substance Abuse: Current smoker
Risk Factors / Comorbidities: Insulin-dependent Diabetes Mellitus, Hypertension
Cardiac Status: NYHA Class II, Ejection Fraction = 57%
Coronary Artery Disease: 3 vessels diseased, Proximal LAD Stenosis >=70%, Stable Angina
Valve Disease: Trivial/Trace MR, Trivial/Trace TR
Procedure Type:�Isolated CABG
PERIOPERATIVE OUTCOME ESTIMATE %
Operative Mortality 0.753%
Morbidity & Mortality 4.55%
Stroke 0.56%
Renal Failure 0.513%
Reoperation 1.75%
Prolonged Ventilation 2.44%
Deep Sternal Wound Infection 0.141%
Long Hospital Stay (>14 days) 2.85%
Short Hospital Stay (<6 days)* 58.7%
--- NOTE | 2023-12-05 15:34 | CM ---
Chart reviewed. Patient is independent of ADLS, lives with his in a m. level home 2 BAILEY through the front and 4 BAILEY through the side, 0 DME. Plan is CABG. Patient unsure if he wants to stay until surgery Friday or if he would prefer to go
home and come back on Friday for PAT. Plan is patient will go home with CT Transitional RN after his CABG. CM to follow
--- NOTE | 2023-12-05 16:20 | W.PN.HOSP.TC ---
Today's Communication/Plan
-
follow up cardiology recs
follow up CTSurgery recs
Still wants to get a second opinon of needs for CABG
Assessment / Plan
Assessment / Plan
NAD, resting comfortably in bed
Scleral anicteric
Moist mucous membranes
No JVD
CTA bilateral
Normal S1-S2 no murmurs IRR
Soft nontender nondistended bowel sounds active
No peripheral pitting edema
Moves extremities spontaneously
AAOx3
MVCAD with 100% lesion of the RCA (culprit lesion) and mLAD - 70%(non-culprit lesion)
-Rec CTSgy eval for CABG
-Continue Hep Gtt
-Continue BB
-Continue HIStatin
-Continue ASA
NSTEMI
� Trend troponin to peak
� Heparin drip continue till rec to DC
� Followed by cardiology
� MVCAD with CASTING [employer] of the RCA and nonculprit lesion of the mLAD
� Continue high intensity statin
� 2D echocardiogram, EF 55 to 60%. Without regional wall motion abnormality
� Continue beta-pedro luis
Atrial fibrillation, paroxysmal
� Continue beta-pedro luis
� On heparin drip, when ready for discharge will DC home with Eliquis 5 mg twice a day
Hypertension
� Continue CCB
� Continue beta-pedro luis
Anticipated Discharge: 24 - 48 hours
Subjective/Interval History
-
Date of Service: December 05, 2023
Seen and examined. No new complaints. No acute overnight events
S/p cardiac cath. Continues on heparin drip. No interventions performed due to multivessel disease with a [employer] lesion to RCA.
Currently wants to think about CABG. States had a long discussion with cardiothoracic surgery and interventional cardiology.
States his good family friend is a cardiac nurse at [employer] wants a second opinion.
Objective Data
-
Labs:
Laboratory Results
12/05/23 12/05/23
10:43 16:45
PT Pending
INR Pending
APTT 82.9 H Pending
Vital Signs:
Vital Signs
Temp Pulse Resp BP Pulse Ox
98.9 F 57 20 114/70 96
12/05/23 15:03 12/05/23 15:45 12/05/23 15:03 12/05/23 15:05 12/05/23 15:03
I&O
12/04/23 12/05/23 12/06/23
06:59 06:59 06:59
Intake Total 120 / 120 1210 / 1210 720 / 720
Output Total 350 / 350
Balance -230 / -230 1210 / 1210 720 / 720
--- NOTE | 2023-12-05 16:54 | W.PN.UPDATE ---
Update Note
Progress Note Update
I had a long conversation with the patient and his . They are still unsure of how they would like to proceed (surgical vs. percutaneous revascularization). They are considering seeking a second opinion as an outpatient. I explained that there is
a small risk of a repeat cardiac event occurring out of the hospital but that it is not unreasonable for him to leave at this time given that his culprit lesion is already closed and he has not had ischemic symptoms since admission. He understands
this risk. He also understands that there is an urgency for him to reach a decision regarding revascularization strategy and proceed in the next days to weeks to reduce his chance of recurrent DC. Should he leave, he will need to start Eliquis with
a plan to discontinue at least 3 days prior to any planned CT surgical procedure. He will need stay on Aspirin daily. Should he definitively decide against surgery, he will need to start Plavix with a 600 mg loading dose and 75 mg daily thereafter
and continue Eliquis until 3 days prior to any planned percutaneous intervention.
[2023-12-05 17:22] LABS: INR 1.09; PT 13.9 Sec (11.4-14.6)
--- NOTE | 2023-12-05 17:22 | W.PN.UPDATE ---
Update Note
Progress Note Update
Patient will likely be discharged home and come back for surgery with Dr. Sr on 12/11. He is set up for PATTs on Thursday 12/07. Per cardiology he will be discharged on and he was given instructions on when to discontinue this when he goes
home. His and him expressed understanding. All questions answered. Emotional support provided.
[2023-12-05 17:24] LABS: APTT 85.9 Sec (23.4-35.0)
[2023-12-05] MEDS: TOPROL XL 25 MG PO (18:34)
[2023-12-05] MEDS: LIPITOR 40 MG PO (18:34)
[2023-12-05] MEDS: NORVASC 10 MG PO (18:34)
[2023-12-06 02:54] VITALS: BP 110/81
[2023-12-06] MEDS: HEPARIN 25000 UNITS/250 ML IV (04:14)
--- NOTE | 2023-12-06 06:21 | PTCARENOTE ---
Pt received start of shift, HR SB/SR. Heparin infusing at 1600u/hr. Pt planning on d/c today, states they will not stay another day. Denies any CP, SOB, or lightheadedness/dizziness.
[2023-12-06 06:48] VITALS: BP 137/70
--- NOTE | 2023-12-06 08:03 | PTCARENOTE ---
At one point in the night, upon entering the pt's room, a smoky smell was noted. Pt denies any involvement. VSS. Pt educated on safety r/t smoking in hospital. Pt proceeded to get agitated and emotional support given.
[2023-12-06 08:32] VITALS: BP 122/72
[2023-12-06] MEDS: TOPROL XL 50 MG PO (08:54)
[2023-12-06] MEDS: THERAGRAN 1 TABLET PO (08:54)
[2023-12-06] MEDS: PROTONIX 40 MG PO (08:54)
[2023-12-06] MEDS: VITAMIN D3 (cholecalciferol) 50 MCG PO (08:54)
[2023-12-06] MEDS: LOW STRENGTH ASPIRIN 81 MG PO (08:54)
[2023-12-06 11:07] VITALS: BP 124/77
--- NOTE | 2023-12-06 12:07 | W.PN.CD ---
Today's Communication / Plan
-
ok to discharge on asa/Eliquis (needs rx)/NTG prn (need rx)/BB and intensified statin (needs new rx)
Impression / Plan
-
Mr. Delgado is a 68 year old man with medical history of HTN and HLD, admitted with several days of chest pain, found to have new Afib and NSTEMI with urgent cardiac cath 12/04/23 demonstrating 100% occluded proximal RCA with L-R collaterals and
non-culprit 80% mid LAD. He has remained chest pain free. He was referred for CABG evaluation.
# CAD
# NSTEMI
- most likely the patient had long standing severe disease allowing robust L-R collaterals to form and minimizing the size of his AK when the RCA fully occluded
- his infarct likely occurred several days prior to presentation, troponin downtrending at time of admission
- EF preserved on TTE
- remains chest pain free
- Per Dr Burrell: 'Given lack of symptoms or signs of ongoing ischemia with a totally occluded culprit lesion, PCI of RCA is not indicated. He also has non-culprit severe LAD disease that was iFR positive. Revascularization of the LAD is indicated.
While this could be accomplished percutaneously, the it would require a long segment of stenting and detention side branch vessels. He is a young patient and would benefit from a more durable result from a RILEY-LAD. Surgery would also allow grafting of
his RCA (currently dependent on L-R collaterals) and atrial clipping to address his Afib. I discussed the patient with Dr. Sr who has seen the patient and concurs that surgical revascularization would be optimal. The patient is considering
obtaining a second opinion, which would require discharge. Dr. Sr and I share the opinion that there is risk involved in discharging the patient of recurrent AK, and we shared our concerns with with the patient who understands.'
-he plans on seeking another opinion, explained I agreed with the approach of Dr Sr and Indra
-cont. ASA, no P2Y12 given potential surgery
-transition heparin to Eliquis
-explained reasons to call 911
Afib, paroxysmal:
- noted since morning of admission, minimally symptomatic, now in sinus rhythm
- continue metoprolol
- [id number] score is at least 3 for HTN, age, and AK; starting Eliquis
HTN:
-stable
-on amlodipine and metoprolol as OP
Dyslipidemia:
-LDL is 64
-on atorvastatin 10 mg daily as OP
-now with NSTEMI will increase to high intensity
Subjective:
he is feeling well, he has a twinge briefly every now and again.
Physical Exam
Vital Signs/Labs
Vital Signs
Temp Pulse Resp BP Pulse Ox
98.4 F 52 18 110/81 98
12/06/23 11:09 12/06/23 03:45 12/06/23 11:09 12/06/23 02:54 12/06/23 11:09
12/05/23 02:40
12/05/23 02:40
PT 13.9 Sec (11.4-14.6) 12/05/23 16:58
INR 1.09 12/05/23 16:58
APTT 88.0 Sec (23.4-35.0) H 12/06/23 05:52
Triglycerides 110 mg/dl (10-149) 12/04/23 03:30
LDL Cholesterol, Calc 64 mg/dl 12/04/23 03:30
VLDL Cholesterol, Calc 22 mg/dl (0-30) 12/04/23 03:30
HDL Cholesterol 42 mg/dl 12/04/23 03:30
LAB Results
12/03/23 12/03/23 12/04/23
19:05 22:40 03:30
Troponin I 11.300 H* Cancelled 9.480 H*
12/04/23 12/04/23 12/04/23
09:44 13:15 19:15
Troponin I 7.040 H* D Cancelled Cancelled
Physical Exam
Constitutional: No acute distress
Cardiovascular: Rhythm & rate is regular, Pedal edema is absent, JVD pressure is normal, Systolic murmur absent and Diastolic murmur absent
Respiratory: Respiratory effort normal, Lungs clear to auscul., Wheeze Absent, Crackles Absent and Rhonchi Absent
Neuro/Psych: AO x 3
Data Reviewed
-
Date of Service: December 06, 2023
Medical Decision Making: Review of Case with other Provider (Dr Guthrie, ok to discharge)
[2023-12-06] MEDS: ELIQUIS 5 MG PO (12:43)
--- NOTE | 2023-12-06 13:13 | W.PN.HOSP.TC ---
Today's Communication/Plan
-
DC home
stop hep gtt
start eliquis.
Assessment / Plan
Assessment / Plan
NAD, resting comfortably in bed
Scleral anicteric
Moist mucous membranes
No JVD
CTA bilateral
Normal S1-S2 no murmurs IRR
Soft nontender nondistended bowel sounds active
No peripheral pitting edema
Moves extremities spontaneously
AAOx3
MVCAD with 100% lesion of the RCA (culprit lesion) and mLAD - 70%(non-culprit lesion)
-Rec CTSgy eval for CABG
-Continue Hep Gtt
-Continue BB
-Continue HIStatin
-Continue ASA
NSTEMI
� Trend troponin to peak
� Heparin drip continue till rec to DC
� Followed by cardiology
� MVCAD with SMALL LOT OPERATOR of the RCA and nonculprit lesion of the mLAD
� Continue high intensity statin
� 2D echocardiogram, EF 55 to 60%. Without regional wall motion abnormality
� Continue beta-pedro luis
Atrial fibrillation, paroxysmal
� Continue beta-pedro luis
� On heparin drip, when ready for discharge will DC home with Eliquis 5 mg twice a day
Hypertension
� Continue CCB
� Continue beta-pedro luis
We had the patient center discussion again at bedside today. He understands the risk of having a heart attack or even dying if intervention with revascularization/PCI versus CABG is delayed for too long. He states that he needs to have a second
opinion in order to make the best decision. He understands that he will need to follow-up with cardiology. He understands that he is started on Eliquis and will need to follow recommendations from cardiology outpatient but when he should stop
Eliquis prior to cardiac intervention.
I again impressed on him how serious this condition is and it is treatable. I also informed him no strenous activity
Anticipated Discharge: Today
Subjective/Interval History
-
Date of Service: December 06, 2023
Seen and examined. No new complaints. No acute overnight events.
States that he is ready to go home. Has a appointment with marketing operations specialist at [facility] on Friday.
States he will go home and not do anything strenuous. Will sit on the couch outside and relax.
Objective Data
-
Labs:
Laboratory Results
12/06/23
05:52
APTT 88.0 H
Vital Signs:
Vital Signs
Temp Pulse Resp BP Pulse Ox
98.4 F 52 18 110/81 98
12/06/23 11:09 12/06/23 03:45 12/06/23 11:09 12/06/23 02:54 12/06/23 11:09
I&O
12/05/23 12/06/23 12/07/23
06:59 06:59 06:59
Intake Total 1210 / 1210 1200 / 1200
Balance 1210 / 1210 1200 / 1200
--- NOTE | 2023-12-06 13:18 | W.DCSUMMARY ---
Discharge Summary
Discharge Data
Date of Admission: 12/03/23
Date of Discharge: 12/06/23
-
Pending Results: No
Hospital Course
68m gx if HTN presented with dizziness and almost passing out associated lightheadedness shortness of breath blurry vision while walking. Found to have high heart enzymes. Started on heparin drip. Evaluated by cardiology taken for a left heart
catheterization which showed multivessel CAD with a 100% occluded RCA and 80% mid LAD. Recommended for CABG however was denied and wanted second opinion even after speaking with cardiothoracic surgery and interventional cardiology. Multiple
medical providers discussed risk of denying or pushing off CABG however ultimately this was a centered discussion with understanding the potential on reoccurring myocardial infarction/heart attack or even if intervention completed at a later
date. Understanding that a decision on what procedure and who will perform the procedure (being revascularization vs CABG) should be made sooner then later. 2D ultrasound of the heart was also completed.
Hospitalization was further complicated by a brief episode of atrial fibrillation. Heparin drip was eventually converted to Eliquis 5 mg twice a day. Will need to take indefinitely. Outpatient cardiology follow-up.
2d Echo
CONCLUSIONS
Normal biventricular size and systolic function without regional wall motion
abnormality.
Mild concentric left ventricular hypertrophy.
No significant valvular disease.
Prominent eustachian valve.
No prior study available for comparison.
C
CONCLUSIONS
1. Two vessel obstructive coronary artery disease in a right dominant system with culprit 100% occluded RCA with robust L-R collaterals and non-culprit iFR positive mid-LAD.
2. Mildly elevated LV filling pressure and no aortic stenosis.
RECOMMENDATIONS:
1. Expectant management after cardiac catheterization via right radial approach.
2. Consult CT surgery for CABG evaluation.
3. Continue ASA, statin, metoprolol; on RASS agents or P2Y12 pending surgical evaluation.
Discharge Plan
-
Patient Disposition: Home (Routine Discharge)
Discharge Diagnosis/Procedures: Cardiac cath
Obstructive MultivesselCAD
NSTEMI
Atrial Fibrillation
Driving Restrictions: No driving for 24 hours
Activity Restrictions/Additional Instructions:
Presented with dizziness and almost passing out associated lightheadedness shortness of breath blurry vision while walking. Found to have high heart enzymes. Started on heparin drip. Evaluated by cardiology taken for a left heart catheterization
which showed multivessel CAD with a 100% occluded RCA and 80% mid LAD. Recommended for CABG however was denied and wanted second opinion even after speaking with cardiothoracic surgery and interventional cardiology. Multiple medical providers
discussed risk of denying or pushing off CABG however ultimately this was a centered discussion with understanding the potential on reoccurring myocardial infarction/heart attack or even if intervention completed at a later date. Understanding
that a decision on what procedure and who will perform the procedure (being revascularization vs CABG) should be made sooner then later. 2D ultrasound of the heart was also completed.
Hospitalization was further complicated by a brief episode of atrial fibrillation. Heparin drip was eventually converted to Eliquis 5 mg twice a day. Will need to take indefinitely. Outpatient cardiology follow-up.
2d Echo
CONCLUSIONS
Normal biventricular size and systolic function without regional wall motion
abnormality.
Mild concentric left ventricular hypertrophy.
No significant valvular disease.
Prominent eustachian valve.
No prior study available for comparison.
[facility]
CONCLUSIONS
1. Two vessel obstructive coronary artery disease in a right dominant system with culprit 100% occluded RCA with robust L-R collaterals and non-culprit iFR positive mid-LAD.
2. Mildly elevated LV filling pressure and no aortic stenosis.
RECOMMENDATIONS:
1. Expectant management after cardiac catheterization via right radial approach.
2. Consult CT surgery for CABG evaluation.
3. Continue ASA, statin, metoprolol; on RASS agents or P2Y12 pending surgical evaluation.
Instructions: Atrial Fibrillation (DC), Recovery after coronary artery bypass graft surgery, Coronary Artery Disease (DC), Coronary artery bypass graft surgery, BLOOD PRESSURE
Stand Alone Forms: DC Instructions- Cath/EP Lab
Referrals:
Pepe Raphael MD [Active] -
Kristie Verde MD [Family Provider] -
Kev Sr MD [Active] -
Prescriptions:
New
atorvastatin 40 mg Tablet
40 mg PO QPM 30 Days Qty: 30 0RF
acetaminophen 325 mg Tablet
650 mg PO Q4HPRN PRN (Reason: mild pain) 30 Days Qty: 10 0RF
pantoprazole 40 mg Tablet,Delayed Release (Dr/Ec)
40 mg PO DAILY Qty: 30 0RF
nitroglycerin 0.4 mg Tablet, Sublingual
0.4 mg sublingual [id number] 30 Days Qty: 30 0RF
aspirin 81 mg Tablet,Chewable
81 mg PO DAILY 30 Days Qty: 30 0RF
Eliquis 5 mg Tablet
5 mg PO BID 30 Days Qty: 60 0RF
Continued
cetirizine 10 mg Tablet
10 mg PO DAILYPRN PRN (Reason: allergies)
metoprolol succinate 50 mg Tablet Extended Release 24 Hr
50 mg PO DAILY
amlodipine 10 mg Tablet
10 mg PO QPM
metoprolol succinate 25 mg Tablet Extended Release 24 Hr
25 mg PO QPM
cholecalciferol (vitamin D3) 50 mcg (2,000 unit) Tablet
50 mcg PO DAILY
azelastine [Astepro Allergy] 205.5 mcg (0.15 %) [place],Non-Aerosol
1 spray INTRANASAL DAILY
Centrum Minis Men 50 Plus [id number] mcg Tablet
1 tab PO DAILY
Discontinued
atorvastatin 10 mg Tablet
10 mg PO QPM
Discharge Orders:
Discharge Patient (As Directed); Ordered 12/06/23
Ordered By: Kalin Guthrie
Care Plan Goals
Care Plan Goals:
Problem: Readiness for enhanced knowledge related to diagnosis and treatment plan
Goal: Understand your diagnosis and treatment plan needs, including medications if applicable.
Instructions: Know your diagnosis, underlying causes and treatment plan options, including medications if applicable. Consult with your health care team to learn about your diagnosis and treatment plan, including medications if applicable.
Discharge Date and Time
Print Language: FRENCH
--- NOTE | 2023-12-06 15:44 | PTCARENOTE ---
Patient discharge to home with . They both verbalized understanding, IV and telemetry removed. Patient escorted to main lobby in a wheelchair
== END 2023-12-06 16:15 | disposition home or self-care (01) | DRG 282 ==
LOC: IVU 21:05
PROVIDERS: Internal Medicine; Nurse Practitioner; ADMITTING PHYSICIAN Hospitalist; ATTENDING PHYSICIAN Hospitalist; CONSULT PHYSICIAN Thoracic Surgery (Cardiothoracic Vascular Surgery); EMERGENCY PHYSICIAN Emergency Medicine; FAMILY PHYSICIAN Family Medicine; OTHER PHYSICIAN Internal Medicine Cardiovascular Disease
PROC: 4A033BC Measurement of Arterial Pressure, Coronary, Percutaneous Approach (ICD-10-PCS; 2023-12-04)
PROC: B2111ZZ Fluoroscopy of Multiple Coronary Arteries using Low Osmolar Contrast (ICD-10-PCS; 2023-12-04)
PROC: 4A023N7 Measurement of Cardiac Sampling and Pressure, Left Heart, Percutaneous Approach (ICD-10-PCS; 2023-12-04)
DX: I21.4 Non-ST elevation (NSTEMI) myocardial infarction (principal); I25.10 Atherosclerotic heart disease of native coronary artery without angina pectoris; I10 Essential (primary) hypertension; F17.290 Nicotine dependence, other tobacco product, uncomplicated; E78.00 Pure hypercholesterolemia, unspecified; I48.0 Paroxysmal atrial fibrillation; Z79.899 Other long term (current) drug therapy
CPT/HCPCS: 71046; 71250; 80053; 80061; 81003; 82962; 83036; 84484; 85025; 85027; 85347; 85610; 85730; 86803; 86850; 86900; 86901; 93005; 93306; 93799; 93880; 96361; 96365; 99291; C1769; C1887; C1894; Q9967

== ENCOUNTER 2024-01-21 08:49 | Outpatient (RCR) | payer OTHER, SELFPAY | END 2024-01-21 23:59 | disposition home or self-care (01) | LOC: CRHB 08:49 | PROVIDERS: ATTENDING PHYSICIAN Internal Medicine Cardiovascular Disease; FAMILY PHYSICIAN Family Medicine | DX: I25.10 Atherosclerotic heart disease of native coronary artery without angina pectoris (principal); Z95.5 Presence of coronary angioplasty implant and graft; I25.2 Old myocardial infarction | CPT/HCPCS: 93797; 93798; G0422; G0423 ==

== ENCOUNTER 2024-02-20 08:43 | Outpatient (RCR) | payer OTHER, SELFPAY | END 2024-02-20 23:59 | disposition home or self-care (01) | LOC: CRHB 08:43 | PROVIDERS: ATTENDING PHYSICIAN Internal Medicine Cardiovascular Disease; FAMILY PHYSICIAN Family Medicine | DX: I25.10 Atherosclerotic heart disease of native coronary artery without angina pectoris (principal); Z95.5 Presence of coronary angioplasty implant and graft; I25.2 Old myocardial infarction | CPT/HCPCS: G0422; G0423 ==

== ENCOUNTER 2024-03-15 08:49 | Outpatient (RCR) | payer OTHER, SELFPAY | END 2024-03-15 23:59 | disposition home or self-care (01) | LOC: CRHB 08:49 | PROVIDERS: ATTENDING PHYSICIAN Internal Medicine Cardiovascular Disease; FAMILY PHYSICIAN Family Medicine | DX: I25.10 Atherosclerotic heart disease of native coronary artery without angina pectoris (principal); Z95.5 Presence of coronary angioplasty implant and graft; I25.2 Old myocardial infarction | CPT/HCPCS: G0422; G0423 ==

== ENCOUNTER → 2024-05-17 07:55 | Outpatient (REF) | payer OTHER, SELFPAY | LOC: HWRAD 07:55 | PROVIDERS: ATTENDING PHYSICIAN Internal Medicine Gastroenterology; FAMILY PHYSICIAN Family Medicine | DX: K92.1 Melena (principal) | CPT/HCPCS: 74261 ==